=== PATIENT | male | born 1985 | race Caucasian/White ===

== ENCOUNTER 2017-10-31 12:50 | Emergency (ER) | payer SELFPAY ==
[~2017-10-31] VITALS: Ht 175.3 cm; Wt 99.8 kg
[2017-10-31] MEDS ORDERED: IBUPROFEN 400 MG TAB PO ONE (13:00)
[2017-10-31] MEDS ORDERED: IBUPROFEN 400 MG TAB ONE (13:02)
[2017-10-31 14:37] VITALS: BP 123/78
== END 2017-10-31 14:20 | disposition home or self-care (01) ==
LOC: ER 12:50
DX: R50.9 Fever, unspecified (principal); J02.0 Streptococcal pharyngitis; F17.210 Nicotine dependence, cigarettes, uncomplicated
CPT/HCPCS: 83518; 99283